=== PATIENT | female | born 1985 | race Native Hawaiian/Other Pacific Islander ===

== ENCOUNTER 2022-03-10 20:07 | Emergency (ER) | payer OTHER ==
[~2022-03-10] VITALS: Ht 160 cm; Wt 68.0 kg
[2022-03-10 20:12] VITALS: TEMP 97.6
[2022-03-10 22:02] VITALS: BP 120/74
== END 2022-03-10 22:03 | disposition home or self-care (01) ==
LOC: ED 20:07
DX: F41.8 Other specified anxiety disorders (principal); Z11.52 Encounter for screening for COVID-19
CPT/HCPCS: 87635; 99282; U0003

== ENCOUNTER 2022-06-28 00:26 | Emergency (ER) | payer OTHER ==
[~2022-06-28] VITALS: Ht 160 cm; Wt 99.8 kg
[2022-06-28 00:42] VITALS: BP 144/99; TEMP 98.4
[2022-06-28 01:05] LABS: PLATELET COUNT 343 K/uL (152-353)
[2022-06-28 01:12] LABS: POTASSIUM 3.8 mmol/L (3.6-5.2)
== END 2022-06-28 03:00 | disposition home or self-care (01) ==
LOC: ED 00:26
PROVIDERS: Emergency Medicine
DX: F41.8 Other specified anxiety disorders (principal)
CPT/HCPCS: 36415; 80053; 80307; 81000; 85027; 93005; 96374; 96375; 99284; J2060

== ENCOUNTER 2022-11-15 11:41 | Emergency (ER) | payer OTHER ==
[~2022-11-15] VITALS: Ht 160 cm; Wt 126.1 kg
[2022-11-15 11:45] VITALS: BP 151/99; TEMP 98.1
== END 2022-11-15 12:39 | disposition home or self-care (01) ==
LOC: ED 11:41
DX: M75.01 Adhesive capsulitis of right shoulder (principal); M75.21 Bicipital tendinitis, right shoulder
CPT/HCPCS: 99281

== ENCOUNTER 2022-11-28 16:24 | Emergency (ER) | payer OTHER ==
[~2022-11-28] VITALS: Ht 160 cm; Wt 99.8 kg
[2022-11-28 16:35] VITALS: BP 125/83; TEMP 98.8
[2022-11-28 17:22] LABS: PLATELET COUNT 366 K/uL (152-353)
[2022-11-28 17:30] LABS: POTASSIUM 4.3 mmol/L (3.6-5.2)
== END 2022-11-28 18:15 | disposition home or self-care (01) ==
LOC: ED 16:24
PROVIDERS: Emergency Medicine Emergency Medical Services
DX: R11.10 Vomiting, unspecified (principal); R19.7 Diarrhea, unspecified; E86.0 Dehydration; Z72.0 Tobacco use
CPT/HCPCS: 80048; 80307; 81002; 81025; 82150; 83690; 85027; 87502; 87635; 87651; 96361; 96374; 96375; 99284; J2405; J3490; U0001